=== PATIENT | male | born 1945 | race Caucasian/White ===

== ENCOUNTER 2016-11-08 06:10 | Inpatient (IN) | payer MEDICARE, OTHER ==
[~2016-11-08] VITALS: Ht 177.8 cm; Wt 109.0 kg
[~2016-11-08 06:10] MED LIST: AMLO5TAB4; BENA40TA54; CARI350T29; CLON-429; HYDR12.58; IBUP200C11; METO100T; NAPR-638; VIC
[2016-11-08] MEDS ORDERED: SOD CHLORIDE 0.9% 1,000 ML IV STA (07:07)
[2016-11-08] MEDS ORDERED: BELLADONNA/PHENOBARBITAL TAB PO STA (07:07)
[2016-11-08] MEDS ORDERED: HYDROmorphONE 1 MG/ML SYG IV STA (07:07)
[2016-11-08] MEDS ORDERED: ONDANSETRON 4 MG INJ IV STA (07:07)
[2016-11-08] MEDS ORDERED: LIDOCAINE/MYLANTA 40 ML BTL PO STA (07:07)
--- NOTE | 2016-11-08 07:21 | ERD ---
ER Documentation Chief Complaint Date/Time DATE: 11/08/16 TIME: 07:20 Chief Complaint AP x2 hours HPI 71-year-old man brought in by for complaints of abdominal pain and distention beginning last night. He states pain began gradually and became extreme, diffuse, nonexertional and nonradiating. He is experience belching and some nausea since last night although no vomiting or diarrhea. Patient states he had a similar episode many years ago was diagnosed with bowel obstruction. He has had no melena or blood per rectum, no chest pain or shortness of breath, no fevers or chills, no dysuria, no headache or blurry vision. Patient is status post bilateral inguinal herniorrhaphy many years ago. Last meal about 12 hours ago. ROS All systems reviewed and are negative except as per history of present illness. Medications Home Meds Reported Medications Hydrocodone/Acetaminophen ([place] 7.5-325 Tablet) 1 Each Tablet, 1 EACH PO Q8 Y for PAIN, TAB 11/08/16 Tizanidine Hcl* (Tizanidine Hcl*) 2 Mg Tablet, 2 MG PO TID Y for SPASTICITY, TAB 11/08/16 Escitalopram Oxalate* (Lexapro*) 10 Mg Tablet, 10 MG PO DAILY, #30 TAB 11/08/16 Amlodipine Besylate* (Amlodipine Besylate*) 10 Mg Tablet, 10 MG PO DAILY, #30 TAB 11/08/16 Metoprolol Tartrate* (Lopressor*) 100 Mg Tablet, 100 MG PO DAILY, #60 TAB 11/08/16 Multivitamins* (Theragran*) 1 Tab Tab, 1 TAB PO DAILY, TAB 11/08/16 Aspirin (Low Dose Aspirin) 81 Mg Tablet.dr, 81 MG PO DAILY, #30 TAB 11/08/16 Discontinued Reported Medications Metoprolol (Lopressor) 100 Mg Tablet 03/31/10 Hydrochlorothiazide* (Hydrochlorothiazide*) 12.5 Mg Tablet 03/31/10 Benazepril Hcl* (Lotensin*) 40 Mg Tablet 03/31/10 Amlodipine Besylate* (Norvasc*) 5 Mg Tablet 03/31/10 Ibuprofen* (Advil*) 200 Mg Capsule 01/06/10 Naproxen Sodium (Aleve) 220 Mg Tablet 01/06/10 Clonazepam* (Klonopin*) 0.5 Mg Tab 01/06/10 Acetaminophen/Hydrocodone (Vicodin) 1 Tab Tab 01/06/10 Carisoprodol* (Carisoprodol*) 350 Mg Tablet 01/06/10 Allergies Allergies: Coded Allergies: No Known Drug Allergies (Verified Allergy, Mild, 11/08/16) PMhx/Soc Hypertension, herniorrhaphy History of Surgery: Yes (NECK FUSION, vertabae surgery,HERNIA) Anesthesia Reaction: No Hx Neurological Disorder: No Hx Respiratory Disorders: No Hx Cardiac Disorders: Yes (htn) Hx Psychiatric Problems: No Hx Miscellaneous Medical Probl: No Hx Alcohol Use: No Hx Substance Use: No Hx Tobacco Use: No FmHx Family History: No diabetes Physical Exam Vitals Vital Signs Date Time Temp Pulse Resp B/P Pulse Ox O2 Delivery O2 Flow Rate FiO2 11/08/16 07:51 98.5 76 20 130/90 98 11/08/16 06:15 96.8 88 20 159/88 98 Physical Exam GENERAL: Well-developed, well-nourished, well-hydrated, in no apparent distress , looks nontoxic in appearance HEENT: Moist mucous membranes, pink conjunctiva, no cervical spine tenderness or step-off deformities, no goiter, no jaundice or icterus, extraocular movements intact without pain. No submandibular induration, and no pharyngeal erythema NEURO: Alert and oriented 3, cranial nerves II through XII intact bilaterally, pupils equal round reactive to light, no focal deficits or facial asymmetry, sensation intact distally Strength 5/5 in upper and lower extremities bilaterally CARDIAC: Regular rate and rhythm, no murmurs rubs or gallops LUNGS: Clear bilaterally no wheezing crackles or stridor ABDOMEN: Soft, distended, protuberant without guarding, diffusely tender to touch, no rebound, no psoas sign no obturator sign. Normoactive bowel sounds SKIN: Warm and dry to touch, no abrasions, contusions, or hematomas, no lacerations, no ecchymosis, no target lesions, and without ulcers EXTREMITIES: No clubbing cyanosis or edema, calves are bilaterally symmetrical, no Homans sign, no popliteal cord sign. Distal pulses equal and bilateral PSYCH: Normal affect without agitation or irritability Result Diagram: 11/08/16 0716 11/08/16 0716 Results 24 hrs Laboratory Tests Test 4/6/17 07:16 11/08/16 07:38 White Blood Count 9.710^3/ul Red Blood Count 5.6410^6/ul Hemoglobin 16.5g/dl Hematocrit 49.9% Mean Corpuscular Volume 88.5fl Mean Corpuscular Hemoglobin 29.3pg Mean Corpuscular Hemoglobin Concent 33.1g/dl Red Cell Distribution Width 13.1% Platelet Count 08927^3/UL Mean Platelet Volume 11.3fl Neutrophils % 73.6% Lymphocytes % 16.8% Monocytes % 6.9% Eosinophils % 1.8% Basophils % 0.4% Nucleated Red Blood Cells % 0.0/100WBC Neutrophils # 7.110^3/ul Lymphocytes # 1.610^3/ul Monocytes # 0.710^3/ul Eosinophils # 0.210^3/ul Basophils # 0.010^3/ul Nucleated Red Blood Cells # 0.010^3/ul Sodium Level 141mmol/L Potassium Level 3.2mmol/L Chloride Level 101mmol/L Carbon Dioxide Level 22mmol/L Anion Gap 21 Blood Urea Nitrogen 33mg/dl Creatinine 0.83mg/dl Glucose Level 117mg/dl Calcium Level 9.5mg/dl Total Bilirubin 0.7mg/dl Direct Bilirubin 0.00mg/dl Indirect Bilirubin 0.7mg/dl Aspartate Amino Transf (AST/SGOT) 29IU/L Alanine Aminotransferase (ALT/SGPT) 35IU/L Alkaline Phosphatase 90IU/L Troponin I < 0.012ng/ml Total Protein 8.3g/dl Albumin 5.2g/dl Globulin 3.10g/dl Albumin/Globulin Ratio 1.67 Lipase 46U/L Urine Color LT. YELLOW Urine Clarity CLEAR Urine pH 5.5 Urine Specific [place] 1.020 Urine Ketones 40 Urine Nitrite NEGATIVE Urine Bilirubin NEGATIVE Urine Urobilinogen 0.2 E.U./dL Urine Leukocyte Esterase NEGATIVE Urine Hemoglobin NEGATIVE Urine Glucose NEGATIVE% Urine Total Protein NEGATIVE Current Medications Medications (Trade) Dose Ordered Sig/Cristine Route PRN Reason Start Time Stop Time Status Last Admin Dose Admin Sodium Chloride (NS) 1,000 ml @ 1,000 mls/hr Q1H STAT IV 11/08/16 07:07 11/08/16 08:06 DC 11/08/16 07:23 Hydromorphone HCl (Dilaudid) 1 mg ONCE STAT IV 11/08/16 07:07 11/08/16 07:09 DC 11/08/16 07:22 Ondansetron HCl (Zofran Inj) 4 mg ONCE STAT IV 11/08/16 07:07 11/08/16 07:09 DC 11/08/16 07:23 Miscellaneous Medication (Gi Cocktail (2)) 40 ml ONCE STAT PO 11/08/16 07:07 11/08/16 07:09 DC 11/08/16 07:22 Bell[place]/ Phenobarbital () 2 tab ONCE STAT PO 11/08/16 07:07 11/08/16 07:09 DC 11/08/16 07:23 IV Flush 10 ml 10 ml STK-MED ONCE .ROUTE 11/08/16 08:08 11/08/16 08:09 DC Sodium Chloride (NS) 100 ml @ ud STK-MED ONCE .ROUTE 11/08/16 08:08 11/08/16 08:09 DC Iohexol (Omnipaque 300mg/ ml) 150 ml STK-MED ONCE .ROUTE 11/08/16 08:08 11/08/16 08:09 DC Procedures/MDM IV line was established patient was placed on search manager rhythm strip revealed a sinus rhythm at about 70 bpm with upright P and T waves. Patient was afebrile. I administered 1 L normal saline intravenously, hydromorphone 1 mg IV and Zofran 4 mg IV with good effect. Patient also received a GI cocktail 50 cc p.o. EKG performed, read by me revealed a normal sinus rhythm 89 bpm with a first- degree atrioventricular block and a HI interval of 208 ms, no concerning ST elevations or depressions noted, right ventricular conduction delay with a QRS duration of [address] scan of the abdomen and pelvis with IV contrast was performed revealing multiple dilated loops of small bowel without obvious transition point and diverticulosis without obvious diverticulitis. Please refer to radiologist dictation for full report. Immediate surgical consultation was obtained with Dr. Gallego who is evaluating the patient at the bedside at this time. CBC was unremarkable, electrolytes reveal hypokalemia 3.2 with dehydration and a BUN/creatinine of 33/0.8, liver function tests are normal, troponin was negative. Urine analysis was negative for infection. I ordered immediate NG tube placement after obtaining consent from the patient and his who was at the bedside. I provided potassium chloride supplementation 60 mEq via NG tube for hypokalemia. Patient admitted to [facility] under Dr. Paige Jean Diagnosis: Primary Impression: Small bowel obstruction Additional Impressions: Abdominal pain Abdominal location: generalized Qualified Code: R10.84 - Generalized abdominal pain Hypokalemia Condition: ALIE Mckinley MD Nov 08, 2016 07:21
[2016-11-08 07:32] LABS: ADD SCAN DIFF NO
[2016-11-08 07:52] LABS: CHLORIDE 101 mmol/L (97-110)
[2016-11-08 07:53] LABS: ALBUMIN 5.2 g/dl (3.3-4.9); POTASSIUM 3.2 mmol/L (3.5-5.1); SODIUM 141 mmol/L (135-144)
[2016-11-08 07:55] LABS: BILIRUBIN,INDIRECT 0.7 mg/dl (0-1.1); BILIRUBIN,TOTAL 0.7 mg/dl (0.2-1.3); CREATININE 0.83 mg/dl (0.61-1.24)
[2016-11-08 07:56] LABS: ALANINE AMINOTRANSFERASE 35 IU/L (13-69); ALBUMIN/GLOBULIN RATIO 1.67; ALKALINE PHOSPHATASE 90 IU/L (42-121); ANION GAP 21 (8-16); ASPARTATE AMINO TRANSFERASE 29 IU/L (15-46); BLOOD UREA NITROGEN 33 mg/dl (7-20); CALCIUM 9.5 mg/dl (8.4-10.2); CARBON DIOXIDE 22 mmol/L (21-31); GLUCOSE 117 mg/dl (70-220); TOTAL PROTEIN 8.3 g/dl (6.1-8.1)
[2016-11-08 08:02] LABS: BASOPHILS % 0.4 % (0.0-2.0); EOSINOPHILS # 0.2 10^3/ul (0.0-0.5); EOSINOPHILS % 1.8 % (0.0-7.0); HEMATOCRIT 49.9 % (42.0-52.0); HEMOGLOBIN 16.5 g/dl (14.0-18.0); LYMPHOCYTES # 1.6 10^3/ul (0.8-2.9); LYMPHOCYTES % 16.8 % (15.0-51.0); MEAN CORPUSCULAR HEMOGLOBIN 29.3 pg (29.0-33.0); MEAN CORPUSCULAR HGB CONC 33.1 g/dl (32.0-37.0); MEAN CORPUSCULAR VOLUME 88.5 fl (82.0-101.0); MEAN PLATELET VOLUME 11.3 fl (7.4-10.4); MONOCYTE # 0.7 10^3/ul (0.3-0.9); MONOCYTES % 6.9 % (0.0-11.0); NEUTROPHIL # 7.1 10^3/ul (1.6-7.5); NEUTROPHILS % 73.6 % (39.0-77.0); PLATELET COUNT 201 10^3/UL (140-415); RED BLOOD COUNT 5.64 10^6/ul (4.70-6.10); RED CELL DISTRIBUTION WIDTH 13.1 % (11.5-14.5); WHITE BLOOD COUNT 9.7 10^3/ul (4.8-10.8)
[2016-11-08] MEDS ORDERED: IOHEXOL 300MG/ML 150 ML BTL ONE (08:08)
[2016-11-08] MEDS ORDERED: SOD CHLORIDE 0.9% 100 ML ONE (08:08)
[2016-11-08 08:15] LABS: TROPONIN-I < 0.012 ng/ml (0.00-0.12)
[2016-11-08 08:25] LABS: ADD UMIC NO; URINE BILIRUBIN (Dip) NEGATIVE (NEGATIVE); URINE BLOOD (Dip) NEGATIVE (NEGATIVE); URINE COLOR LT. YELLOW (YELLOW); URINE GLUCOSE (Dip) NEGATIVE (NEGATIVE); URINE KETONES (Dip) 40 (NEGATIVE); URINE LEUKOCYTE ESTERASE (Dip) NEGATIVE (NEGATIVE); URINE NITRITE (Dip) NEGATIVE (NEGATIVE); URINE TOTAL PROTEIN (Dip) NEGATIVE (NEGATIVE); URINE UROBILINOGEN (Dip) 0.2 E.U./dL (0.1-1.0)
--- NOTE | 2016-11-08 08:53 | RADRPT ---
PROCEDURE: CT Abdomen and Pelvis with contrast. CLINICAL INDICATION: Abdominal pain. Obstruction. TECHNIQUE: CT scan of the abdomen and pelvis with contrast was performed on a multi-detector high- resolution CT scanner. The patient was scanned following the uncomplicated intravenous administrati on of 100 cc of Omnipaque 300. Coronal and sagittal reformatted images were obtained from the axial source images. Images were reviewed on a high-resolution PACS workstation. The total exam CTDI equa ls 20.87 mGy and the total exam DLP equals 1437.60 mGy-cm. One or more of the following dose reduction techniques were used: Automated exposure control. Adjustment of the mA and/or kV according to patient size. Use of iterative reconstruction technique. COMPARISON: None. FINDINGS: CT abdomen: The lung bases are clear. The heart size is normal, without pericardial thickening or effusion. There is mild fatty infiltration of the liver. Multiple scattered cysts are seen in both hepatic lo bes measures up to 4 cm in the left lateral segment. The spleen is normal in size and homogeneous i n density. The stomach is partially collapsed, but is grossly unremarkable. The pancreas as visual ized is normal. The gallbladder and biliary tree are unremarkable and there is no evidence for bili dane dilatation. The adrenal glands are symmetric and normal. The kidneys are symmetrically unremar kable as well. No renal calculus or obstructive uropathy or mass lesion is seen. There is approxima tely 2 cm cyst in the mid pole right kidney. Small parapelvic cysts are present bilaterally. There is mild ectasia of the infrarenal abdominal aorta measures up to 3 cm. There is no retroperit bah lymphadenopathy. The homa hepatis region is clear. There are multiple mildly dilated fluid- filled small bowels without discrete transition point. CT pelvis: The small bowel loops situated within the pelvis are unremarkable. There is a small fat containing r ight inguinal hernia. The pelvic organs are normal. The pelvic sidewalls and inguinal regions are c lear. The sigmoid colon and rectum are remarkable for sigmoid diverticulosis. No mass, lymphadenop athy, or free fluid is seen. No acute inflammation is seen. The bladder is normal.The surrounding osseous structures are unremarkable. No osteolytic or osteoblastic lesion is detected. IMPRESSION: 1. Mild fluid distension of multiple loops of small bowel without discrete transition point. This is nonspecific and can be seen with early small bowel obstruction, enteritis or ileus. 2. Sigmoid diverticulosis without evidence of acute diverticulitis. 3. 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 4. Fatty liver with multiple scattered cysts. 5. Fat containing right inguinal hernia. RPTAT: BB .Deniz Mancia MD, Date Time Electronically viewed and signed by .Deniz Mancia MD, on 11/08/2016 08:53 .O/
[2016-11-08] MEDS ORDERED: METO-407 PO (09:04)
[2016-11-08] MEDS ORDERED: MULTI PO (09:04)
[2016-11-08] MEDS ORDERED: ASPI-664 PO (09:04)
[2016-11-08] MEDS ORDERED: AMLO-147 PO (09:05)
[2016-11-08] MEDS ORDERED: ESCI10TA PO (09:05)
[2016-11-08] MEDS ORDERED: HYDR-905 PO (09:06)
[2016-11-08] MEDS ORDERED: TIZA2TAB PO (09:06)
[2016-11-08] MEDS ORDERED: POTASSIUM CHLORIDE (SR) 20 MEQ TAB PO STA (09:28)
--- NOTE | 2016-11-08 09:40 | CONS ---
Date/Time of Note Date/Time of Note DATE: 11/08/16 TIME: 09:32 Assessment/Plan Assessment/Plan Chief Complaint/Hosp Course 71-year-old male with abdominal pain * His abdominal pain is currently resolved. He does not have any nausea. * CT scan was personally reviewed. I agree with the radiologist's findings. There is quite a bit of stool throughout the patient's colon. * Differential diagnosis includes: Constipation, gastrointestinal viral syndrome , ileus, small bowel obstruction, etc. * At this time given the patient's clinical pictures and imaging findings my suspicion for mechanical small bowel obstruction is on the lower side. * I would recommend nothing by mouth, IV fluid hydration, correction of potassium. * If the patient becomes nauseous or vomits would recommend inserting a nasogastric tube to low continuous wall suction * Recommend fleets enemas * No indication for acute surgical intervention at this time I discussed the above with the patient and his in detail and ensured that all of their questions were answered. I also discussed the case with the emergency room physician. Further recommendations will be made based on the patient's clinical course. Problems: Consultation Date/Type/Reason Admit Date/Time Date of Consultation: Nov 08, 2016 Type of Consultation: GENERAL SURGERY Reason for Consultation Abdominal pain Hx of Present Illness The patient is a 71-year-old obese male who presented to the emergency room complaining of a 1 day history of abdominal pain. He describes the pain as being located in the epigastrium. He reports nausea, but no vomiting. His last bowel movement was yesterday and constipated. He has been passing flatus. He denies any fever/chills. Reports one similar episode of pain in the past which resolved on its own. He denies any history of abdominal surgeries. On arrival to the emergency room he was found to be hemodynamically stable without leukocytosis. CT scan of the abdomen and pelvis showed mildly dilated loops of small bowel without transition point. He is currently comfortable and denies any abdominal pain or nausea. A 14 point review of systems was conducted and was negative except for that which is mentioned in history of present illness Past Medical History Medical History: hypertension, other (chronic neck pain) Past Surgical History Bilateral inguinal hernia repairs as a child. Neck fusion. Family History Significant Family History: no pertinent family hx Social History Smoking Status: Never smoker Exam/Review of Systems Vital Signs Vitals Vital Signs Date Time Temp Pulse Resp B/P Pulse Ox O2 Delivery O2 Flow Rate FiO2 11/08/16 07:51 98.5 76 20 130/90 98 Exam GENERAL: Obese, Awake, alert, oriented 3. No acute distress. SKIN: No jaundice. HEENT: PERRLA, EOMI, No Scleral Icterus NECK: Supple without JVD CARDIOVASCULAR: S1S2, regular rate and rhythm. No murmurs appreciated. RESPIRATORY: Clear to auscultation bilaterally. ABDOMEN: Obese, Soft, bowel sounds present, nondistended, nontender to palpation. There are no abdominal scars. There are no palpable hernias. EXTREMITIES: Free range of motion 4. No cyanosis, edema, or clubbing. NEUROLOGIC: Cranial nerves II-XII are intact. Sensation is intact grossly. Results Result Diagram: 11/08/16 0716 11/08/16 0716 Results 24 hrs Laboratory Tests Test 11/08/16 07:16 11/08/16 07:38 White Blood Count 9.7 Red Blood Count 5.64 Hemoglobin 16.5 Hematocrit 49.9 Mean Corpuscular Volume 88.5 Mean Corpuscular Hemoglobin 29.3 Mean Corpuscular Hemoglobin Concent 33.1 Red Cell Distribution Width 13.1 Platelet Count 201 Mean Platelet Volume 11.3 H Neutrophils % 73.6 Lymphocytes % 16.8 Monocytes % 6.9 Eosinophils % 1.8 Basophils % 0.4 Nucleated Red Blood Cells % 0.0 Neutrophils # 7.1 Lymphocytes # 1.6 Monocytes # 0.7 Eosinophils # 0.2 Basophils # 0.0 Nucleated Red Blood Cells # 0.0 Sodium Level 141 Potassium Level 3.2 L Chloride Level 101 Carbon Dioxide Level 22 Anion Gap 21 H Blood Urea Nitrogen 33 H Creatinine 0.83 Glucose Level 117 Calcium Level 9.5 Total Bilirubin 0.7 Direct Bilirubin 0.00 Indirect Bilirubin 0.7 Aspartate Amino Transf (AST/SGOT) 29 Alanine Aminotransferase (ALT/SGPT) 35 Alkaline Phosphatase 90 Troponin I < 0.012 Total Protein 8.3 H Albumin 5.2 H Globulin 3.10 Albumin/Globulin Ratio 1.67 Lipase 46 Urine Color LT. YELLOW Urine Clarity CLEAR Urine pH 5.5 Urine Specific [place] 1.020 Urine Ketones 40 Urine Nitrite NEGATIVE Urine Bilirubin NEGATIVE Urine Urobilinogen 0.2 E.U./dL Urine Leukocyte Esterase NEGATIVE Urine Hemoglobin NEGATIVE Urine Glucose NEGATIVE Urine Total Protein NEGATIVE Procedures Procedures PROCEDURE: CT Abdomen and Pelvis with contrast. CLINICAL INDICATION: Abdominal pain. Obstruction. TECHNIQUE: CT scan of the abdomen and pelvis with contrast was performed on a multi-detector high-resolution CT scanner. The patient was scanned following the uncomplicated intravenous administration of 100 cc of Omnipaque 300. Coronal and sagittal reformatted images were obtained from the axial source images. Images were reviewed on a high-resolution PACS workstation. The total exam CTDI equals 20.87 mGy and the total exam DLP equals 1437.60 mGy-cm. One or more of the following dose reduction techniques were used: Automated exposure control. Adjustment of the mA and/or kV according to patient size. Use of iterative reconstruction technique. COMPARISON: None. FINDINGS: CT abdomen: The lung bases are clear. The heart size is normal, without pericardial thickening or effusion. There is mild fatty infiltration of the liver. Multiple scattered cysts are seen in both hepatic lobes measures up to 4 cm in the left lateral segment. The spleen is normal in size and homogeneous in density. The stomach is partially collapsed, but is grossly unremarkable. The pancreas as visualized is normal. The gallbladder and biliary tree are unremarkable and there is no evidence for biliary dilatation. The adrenal glands are symmetric and normal. The kidneys are symmetrically unremarkable as well. No renal calculus or obstructive uropathy or mass lesion is seen. There is approximately 2 cm cyst in the mid pole right kidney. Small parapelvic cysts are present bilaterally. There is mild ectasia of the infrarenal abdominal aorta measures up to 3 cm. There is no retroperitoneal lymphadenopathy. The homa hepatis region is clear. There are multiple mildly dilated fluid-filled small bowels without discrete transition point. CT pelvis: The small bowel loops situated within the pelvis are unremarkable. There is a small fat containing right inguinal hernia. The pelvic organs are normal. The pelvic sidewalls and inguinal regions are clear. The sigmoid colon and rectum are remarkable for sigmoid diverticulosis. No mass, lymphadenopathy, or free fluid is seen. No acute inflammation is seen. The bladder is normal.The surrounding osseous structures are unremarkable. No osteolytic or osteoblastic lesion is detected. IMPRESSION: 1. Mild fluid distension of multiple loops of small bowel without discrete transition point. This is nonspecific and can be seen with early small bowel obstruction, enteritis or ileus. 2. Sigmoid diverticulosis without evidence of acute diverticulitis. 3. 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 4. Fatty liver with multiple scattered cysts. 5. Fat containing right inguinal hernia. RPTAT: BB .Deniz Mancia MD, Date Time Electronically viewed and signed by .Deniz Mancia MD, on 11/08/2016 08:53 .O/ CC: ALIE LOPEZ MD, MICHAEL A. MD Nov 08, 2016 09:40
[2016-11-08 10:00] VITALS: PULSE 85; TEMP 98.4
[2016-11-08] MEDS ORDERED: NA PHOSPHATE/BIPHOS 133 ML ENEMA PR ONE (10:00)
[2016-11-08 10:05] LABS: INR 1.01; PROTIME 13.3 Sec (12.2-14.2)
[2016-11-08 10:45] VITALS: Ht 177.8 cm; Wt 109.0 kg
[2016-11-08 11:10] VITALS: BP 118/70; RESP 19
[2016-11-08] MEDS ORDERED: CARISOPRODOL 350 MG TAB PO PRN (13:00)
[2016-11-08] MEDS ORDERED: ZOLPIDEM 5 MG TAB PO PRN (13:00)
[2016-11-08] MEDS ORDERED: HYDROCODONE/APAP (5/325) TAB PO PRN (13:00)
[2016-11-08] MEDS ORDERED: NACL 0.9% 3 ML SYG IV SCH (13:00)
[2016-11-08] MEDS ORDERED: ACETAMINOPHEN 325 MG TAB PO PRN (13:00)
--- NOTE | 2016-11-08 13:53 | HP ---
DATE OF ADMISSION: 11/08/2016 REASON FOR ADMISSION: Admitted for abdominal pain, possible small-bowel obstruction. HISTORY OF PRESENT ILLNESS: This is a 71-year-old male with reporting of having increasing abdomina l pain since the previous night. Came into the emergency room. Denies having any specific pain of the abdomen, mild distention. No fevers, no chills, no diarrhea. In the emergency room, he was giv en a GI cocktail and the patient then says that the pain has resolved. He does not report feeling t hat distended at this time, and patient is thinking he wants to go home. PAST MEDICAL HISTORY: Includes a C6 to C7 fusion, seizure disorder since 2003, was placed on [place] x and then changed over to Klonopin. History of polio, hyperlipidemia, shingles, hypertension which is hard to control. MEDICATIONS: 1. Metoprolol 100 mg daily. 2. Amlodipine 10 mg daily. 3. Tizanidine 2 mg t.i.d. 4. Lexapro 10 mg daily. 5. [place] 1 tablet t.i.d. p.r.n. pain. 6. Clonazepam 0.5 mg daily. 7. [place] 350 mg t.i.d. p.r.n. pain. 8. NSAIDs p.r.n. FAMILY HISTORY: Noncontributory. PHYSICAL EXAMINATION: VITAL SIGNS: Blood pressure 118/70, temperature 98.2, pulse is 94, respirations 19, pulse oximetry is 95%. HEENT: Head is normocephalic, atraumatic. Eyes: Pupils equal, round, react to light and accommoda tion. Anicteric. ENT: Tympanic membranes clear. Oropharynx is clear. LUNGS: Clear to auscultation bilaterally. HEART: Regular rate and rhythm. ABDOMEN: No pain, mildly distended. Positive bowel sounds. LOWER EXTREMITIES: No lesions. LABORATORY DATA: Demonstrates a WBC of 9.7, hemoglobin 16.5, platelets 201. UA negative. Creatini ne is 0.83, BUN 33, potassium 3.2, sodium is 141. AST and ALT of 29 and 35. Troponin is less than 0.012. ASSESSMENT AND PLAN: 1. Abdominal pain. Rule out obstruction versus ileus versus gastritis. The patient reports the pa in completely resolved after the GI cocktail. We will place him on Reglan IV to increase motility, also may help with gastritis. GI has been called to evaluate. The patient is to continue on a full liquid diet up until the time we determine that the pain does not reoccur. The patient was given a n enema and he did have bowel movements currently. The nurse reports that the ER and surgeon though t maybe he is more constipated causing the obstruction. We will also start IV hydration. 2. History of seizure disorder. We will continue his p.o. Klonopin. 3. Chronic neck, thoracic pain. He can take his [place] p.r.n., but this will make him more constipa oral, so he has to watch out for this. 4. Hypertension. The patient on multiple medications. We will continue his regular meds and use c lonidine p.r.n. Dictated By: VAMSHI MERRITT/JIMENEZ Conf#: [id number] DID#: [id number]
[2016-11-08] MEDS: DEXTROSE 5%-0.45% NACL 1,000 ML IV SCH (14:34)
[2016-11-08] MEDS: METOCLOPRAMIDE 10 MG INJ IV SCH (17:48)
[2016-11-08 19:47] VITALS: BP 135/75; RESP 20
[2016-11-09] MEDS: METOCLOPRAMIDE 10 MG INJ IV SCH ×3 (00:27→12:42)
[2016-11-09] MEDS: DEXTROSE 5%-0.45% NACL 1,000 ML IV SCH ×2 (01:18→05:23)
[2016-11-09 06:00] LABS: ADD SCAN DIFF NO
[2016-11-09 06:16] LABS: BASOPHILS % 0.8 % (0.0-2.0); EOSINOPHILS # 0.4 10^3/ul (0.0-0.5); EOSINOPHILS % 6.9 % (0.0-7.0); HEMATOCRIT 45.1 % (42.0-52.0); HEMOGLOBIN 14.9 g/dl (14.0-18.0); LYMPHOCYTES # 1.8 10^3/ul (0.8-2.9); LYMPHOCYTES % 33.3 % (15.0-51.0); MEAN CORPUSCULAR HEMOGLOBIN 30.1 pg (29.0-33.0); MEAN CORPUSCULAR VOLUME 91.1 fl (82.0-101.0); MEAN PLATELET VOLUME 11.6 fl (7.4-10.4); MONOCYTE # 0.5 10^3/ul (0.3-0.9); MONOCYTES % 9.3 % (0.0-11.0); NEUTROPHIL # 2.6 10^3/ul (1.6-7.5); NEUTROPHILS % 49.3 % (39.0-77.0); PLATELET COUNT 183 10^3/UL (140-415); RED BLOOD COUNT 4.95 10^6/ul (4.70-6.10); RED CELL DISTRIBUTION WIDTH 13.3 % (11.5-14.5); WHITE BLOOD COUNT 5.3 10^3/ul (4.8-10.8)
[2016-11-09 07:07] LABS: ALBUMIN 4.3 g/dl (3.3-4.9); ALBUMIN/GLOBULIN RATIO 1.53; BILIRUBIN,INDIRECT 0.6 mg/dl (0-1.1); BILIRUBIN,TOTAL 0.6 mg/dl (0.2-1.3); CALCIUM 8.9 mg/dl (8.4-10.2); CREATININE 0.74 mg/dl (0.61-1.24); POTASSIUM 4.4 mmol/L (3.5-5.1); TOTAL PROTEIN 7.1 g/dl (6.1-8.1)
[2016-11-09 07:32] VITALS: BP 141/77; RESP 16
[2016-11-09] MEDS ORDERED: METOPROLOL (XL) 100 MG TAB PO SCH (09:00)
[2016-11-09] MEDS ORDERED: ESCITALOPRAM 10 MG TAB PO SCH (09:00)
[2016-11-09] MEDS ORDERED: clonAZEPAM 0.5 MG TAB PO SCH (09:00)
[2016-11-09] MEDS ORDERED: AMLODIPINE 10 MG TAB PO SCH (09:00)
[2016-11-09] MEDS ORDERED: ENOXAPARIN 40 MG/0.4 ML SYG SC SCH (09:00)
--- NOTE | 2016-11-09 09:01 | PN ---
Date/Time of Note Date/Time of Note DATE: 11/09/16 TIME: 08:58 Assessment/Plan Lines/Catheters IV [facility] (from [facility]): Peripheral IV Assessment/Plan Assessment/Plan 71-year-old male with abdominal pain * His abdominal pain is currently resolved. He does not have any nausea. * Likely Constipation vs. gastrointestinal viral syndrome vs. ileus. * Recommend a bowel regimen to prevent constipation * Advance diet as tolerated * Surgically stable for discharge home if tolerates diet and medically cleared The above was discussed with the patient and the nurse the bedside. Subjective 24 Hr Interval Summary Feeling better. Denies abdominal pain. Tolerating full liquids. Had a bowel movement yesterday. Afebrile. Exam/Review of Systems Vital Signs Vitals Vital Signs Date Time Temp Pulse Resp B/P Pulse Ox O2 Delivery O2 Flow Rate FiO2 11/09/16 07:32 98.6 75 16 141/77 97 11/08/16 10:00 Room Air Intake and Output 11/08/16 11/08/16 11/09/16 15:00 23:00 07:00 Intake Total 240 ml 880 ml Balance 240 ml 880 ml Exam Free Text/Dictation GENERAL: Obese, Awake, alert, oriented 3. No acute distress. CARDIOVASCULAR: S1S2, regular rate and rhythm. No murmurs appreciated. RESPIRATORY: Clear to auscultation bilaterally. ABDOMEN: Obese, Soft, bowel sounds present, nondistended, nontender to palpation. EXTREMITIES: Free range of motion 4. No cyanosis, edema, or clubbing. Results Result Diagram: 11/09/16 0518 11/09/16 0518 CARLOS GOLDBERG MD Nov 09, 2016 09:01
--- NOTE | 2016-11-09 14:18 | DS ---
DATE OF ADMISSION: 11/08/2016 DATE OF DISCHARGE: DISCHARGE DIAGNOSIS: Gastroenteritis, abdominal pain. SUBJECTIVE: The patient has no complaints. Pain went away directly after the GI cocktail that he w as given in the ER. GI did not visit the patient. Abdominal pain completely resolved. 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 The patient while in the hospital for his possibility of constipation versus ileus versus small-bowel obstruction was given Reglan IV q.i. d. Pain, by the time the patient went up to the floor, was already gone. Patient had been having go od bowel movement, had an enema as well as the Reglan had the patient having regular bowel movements . Abdomen still was mildly distended but that may be how he is typically with his overweight. Izabella ls remained stable. At the time of discharge, the blood pressure is 141/77, pulse 75, respirations 16, pulse ox 97 on room air, temperature 98.6. Laboratory tests today was WBC of 5.3, hemoglobin 14 .9, platelets 183. Potassium is at 4.4. Creatinine is at 0.74. MEDICATION: He is to restart his normal medications and no new additives which were: 1. Lexapro 10 mg every day. 2. Metoprolol 100 mg every day. 3. Amlodipine 10 mg every day. 4. Klonopin 0.5 mg every day. 5. [place] p.r.n. 6. [place] 350 q.8h. p.r.n. Dictated By: VAMSHI MERRITT/JIMENEZ Conf#: [id number] DID#: [id number]
== END 2016-11-09 15:17 | disposition home or self-care (01) | DRG 392 ==
LOC: E/R 06:10 → MS2 10:30
PROVIDERS: ADMIT Internal Medicine; ATTEND Internal Medicine
DX: R10.9 Unspecified abdominal pain (principal); G40.909 Epilepsy, unspecified, not intractable, without status epilepticus; I10 Essential (primary) hypertension; G89.29 Other chronic pain; M54.2 Cervicalgia; M54.6 Pain in thoracic spine; E78.5 Hyperlipidemia, unspecified
CPT/HCPCS: 36415; 74177; 80053; 81003; 83690; 84484; 85025; 85610; 93005; 96374; 96375; J1170; J1650; J2405; J2765; J7030; J7042; Q9967